=== PATIENT | female | born 1935 | race African-American/Black ===

== ENCOUNTER 2017-02-19 03:13 | Emergency (ER) | payer MEDICARE ==
[~2017-02-19] VITALS: Ht 154.9 cm; Wt 78.0 kg
[~2017-02-19 03:13] MED LIST: CIPRO; CITRACAL; IRON; MICARDIS
[2017-02-19] MEDS ORDERED: ACETAMINOPHEN WITH CODEINE 300/30MG TABLET PO ONE (04:00)
[2017-02-19 04:13] LABS: BASOPHILS % 0.4 % (0.0-2.0); EOSINOPHILS % 0.9 % (0.0-5.0); HEMATOCRIT. 39.8 % (36.0-48.0); HEMOGLOBIN. 13.2 g/dL (12.0-16.0); MEAN CORPUSCULAR HEMOGLOBIN 31.2 pg (28.0-32.0); MEAN CORPUSCULAR HGB CONC 33.1 g/dL (31.0-37.0); MEAN CORPUSCULAR VOLUME 94.3 fL (81.0-99.0); MEAN PLATELET VOLUME 8.6 fl (7.4-10.4); MONOCYTES % 6.8 % (2.0-8.0); NEUTROPHILS % 79.9 % (40.0-76.0); PLATELET 180 x1000/uL (130-400); RED BLOOD CELL COUNT 4.22 mill/uL (4.2-5.4); RED CELL DISTRIBUTION WIDTH 14.7 % (11.6-14.6); WHITE BLOOD COUNT 7.5 x1000/uL (4.5-11.0)
[2017-02-19 04:24] LABS: CALCIUM 9.4 mg/dL (8.5-10.1)
[2017-02-19 06:04] VITALS: BP 170/92
== END 2017-02-19 06:06 | disposition home or self-care (01) ==
LOC: ER 03:14
DX: R51 Headache (principal); I10 Essential (primary) hypertension; E11.9 Type 2 diabetes mellitus without complications; Z96.659 Presence of unspecified artificial knee joint
CPT/HCPCS: 36415; 70450; 80048; 85025; 99285

== ENCOUNTER 2018-04-01 16:17 | Emergency (ER) | payer MEDICARE ==
[~2018-04-01] VITALS: Ht 152.4 cm; Wt 77.0 kg
[2018-04-01 16:30] VITALS: BP 158/93
== END 2018-04-01 19:14 | disposition left against medical advice (07) ==
LOC: ER 16:17
DX: M25.571 Pain in right ankle and joints of right foot (principal)
CPT/HCPCS: 73610; 73630; 99284